=== PATIENT | female | born 1965 | race Caucasian/White ===

== ENCOUNTER 2022-10-09 15:52 | Emergency (ER) | payer SELFPAY ==
[2022-10-09 15:52] VITALS: BP 163/78; PULSE 98; RESP 20; TEMP 36.2; O2SAT 99
--- NOTE | 2022-10-09 15:58 | ED.DENTAL ---
HPI - Dental/Oral General Chief complaint: Dental/Oral Stated complaint: dental abscess Time Seen by Provider: 10/09/22 15:58 Source: patient and RN notes reviewed Mode of arrival: ambulatory Limitations: no limitations History of Present Illness Complaint: tooth pain Location: Tooth # (20) Onset (ago): day(s) (1) Duration: constant Severity: moderate Relieving factors: nothing Exacerbating factors: chewing Context: history of dental caries Associated symptoms: fever and gum swelling Treatment prior to arrival: topical analgesic Related Data Allergies Allergy/AdvReac Type Severity Reaction Status Date / Time No Known Allergies Allergy Unverified 11/22/15 08:06 Review of Systems Review of Systems: All systems reviewed & are unremarkable except as noted in HPI and below PMFSH Past Medical History Medical History (Updated 10/09/22 @ 16:04 by Leon Asencio MD) No active medical problems Surgical History Surgical History (Updated 10/09/22 @ 16:03 by Loen Asencio MD) No pertinent past surgical history Social History Social History (Updated 10/09/22 @ 16:03 by Leon Asencio MD) Smoking packs per day: 0.5 Smoking cigarettes per day: 10.0 Smoking status: Current every day smoker Tobacco type: cigarettes Alcohol intake: current Alcohol use details: Occasional Substance use: current Substance use type: marijuana Other substance usage details: occasional Exam Const: General: healthy appearing, no acute distress and alert Nutritional Appearance: well nourished Orientation/consciousness: patient oriented x3 Limitations: no limitations HENMT: Head: normal to inspection Ears: external ears normal Face/Nose/Sinus: Normal external nose present Face and sinus: fluctuance ( Left lower mandible) Mouth: Yes moist mucous membranes Teeth image: 1. Surrounding edema, fractured tooth, surrounding abscess. Throat: uvula midline Eyes: Conjunctivae: conjunctivae normal Pupils: Equal, round and reactive pupils present EOM: EOMs intact bilaterally Neck: Neck: normal visual inspection and lymphadenopathy left submandibular soft and tender Chest: Chest palpation & inspection: normal inspection of the chest Resp: Effort & Inspection: normal respiratory effort Auscultation: clear to auscultation bilaterally Cardio: Rate: regular rate Rhythm: regular rhythm GI: GI Palp: Yes Soft to palpation and No Tenderness to palpation present (GI) Auscultation: normal bowel sounds Back/Spine/Pelvis: Cervical Spine: cervical ROM normal Thoracic/Lumbar Spine: thoraco-lumbar ROM normal Skin: General skin exam: normal color Rashes: no rashes Neuro: General: patient oriented x3, moves all extremities, no focal motor deficits and CN's II-XI intact bilaterally Speech: normal speech Gait exam (Neuro): Normal gait present Extrem: General: normal to inspection and no clubbing, cyanosis or edema Psych: Mental Status: mental status grossly normal Affect: normal affect Attitude: cooperative Course Vital Signs Vital signs: Vital Signs Temperature 36.2 C L 10/09/22 15:52 Pulse Rate 98 10/09/22 15:52 Respiratory Rate 20 10/09/22 15:52 Blood Pressure 163/78 H 10/09/22 15:52 Pulse Oximetry 99 10/09/22 15:52 Oxygen Delivery Room Air 10/09/22 15:52 Temperature 36.2 C L 10/09/22 15:52 Pulse Rate 98 10/09/22 15:52 Respiratory Rate 20 10/09/22 15:52 Blood Pressure 163/78 H 10/09/22 15:52 Pulse Oximetry 99 10/09/22 15:52 Oxygen Delivery Room Air 10/09/22 15:52 MDM - Dental/Oral Differential Diagnosis Differential diagnosis: Likely gingival abscess, dental caries, toothache and dental abscess Discharge Plan Discharge Clinical Impression: Dental abscess Patient Disposition: Home, Self-Care Condition: Stable Instructions: Antibiotic Form, Dental Abscess (ED) Additional Instructions: warm compresses 3-4 times per day. Consider using s
== END 2022-10-09 16:10 | disposition home or self-care (01) ==
LOC: CHSED 16:08
PROVIDERS: Emergency Provider Emergency Medicine; PCP Family Medicine
DX: K04.7 Periapical abscess without sinus (principal); F17.210 Nicotine dependence, cigarettes, uncomplicated
CPT/HCPCS: 99283